=== PATIENT | male | born 1960 | race Caucasian/White ===

== ENCOUNTER 2017-05-26 15:56 | Emergency (ER) | payer BC ==
[2017-05-26 16:03] VITALS: BP 147/87; PULSE 63; RESP 16; TEMP 97.9; O2SAT 96
--- NOTE | 2017-05-26 16:03 | EDPHY ---
H & P Stated Complaint: ? SPIDER BITE TO R FOOT Time Seen by Provider: 05/26/17 16:03 - Personal History Current Tetanus/Diphtheria Vaccine: Yes - Medical/Surgical History Hx Asthma: No Hx Chronic Respiratory Disease: No Hx Diabetes: No Hx Cardiac Disease: No Hx Renal Disease: No Hx Cirrhosis: No Hx Alcoholism: No Hx HIV/AIDS: No Hx Splenectomy or Spleen Trauma: No Other PMH: DENIES - Social History Smoking Status: Never smoked Constitutional: Initial Vital Signs Temperature (C) 36.6 C 05/26/17 15:59 Heart Rate 63 05/26/17 15:59 Respiratory Rate 16 05/26/17 15:59 Blood Pressure 147/87 H 05/26/17 15:59 O2 Sat (%) 96 05/26/17 15:59 O2 Delivery Mode Room Air Allergies/Adverse Reactions: No Known Allergies Allergy (Unverified 05/26/17 15:59) Home Medications: Medication Instructions Recorded oxyCODONE IR [Oxycodone Ir (*)] 5 - 10 mg PO Q6 PRN #7 tab 05/26/17 Medical Decision Making ED Course/Re-evaluation: CHIEF COMPLAINT: Spider bite on right foot HISTORY OF PRESENT ILLNESS: The patient is a 56 y/o male who complains of acute onset of redness and regional pain on his right foot. This afternoon he stuck his foot in his work-shoes and felt something little moved followed by pain on the dorsal and medial aspects of his right foot. The pain was initially mild but rapidly became too severe to walk. Denies muscle pain, spasm, fever, paresthesia, weakness. He denies pertinent medical history. REVIEW OF SYSTEMS: A 10 point review of systems was performed and is negative with the exception of the elements mentioned in the history of present illness. PHYSICAL EXAM: HR, BP, O2 Sat, RR. Temp noted General Appearance: Alert, well hydrated, appropriate, and non-toxic appearing. Head: Atraumatic without scalp tenderness or obvious injury Eyes: Pupils equal, round, reactive to light and accommodation, EOMI, no trauma , no injection. Nose: Atraumatic, no rhinorrhea, clear. Throat: There is no erythema or exudates, no lesions, normal tonsils, mucus membranes moist. Neck: Supple, nontender, no lymphadenopathy. Respiratory: No distress. Cardiovascular: Good capillary refill all extremities. Musculoskeletal: Tenderness and redness on dorsal and medial aspects of right foot. Normal active ROM of all extremities, atraumatic. Neurological: Alert, appropriate, and interactive. Non-focal neuro. Skin: No rashes, good turgor, no nodules on palpation. Past medical history: Denies Social history: Arrives with at bedside, lives in [place], works for [employer]. DIFFERENTIAL DIAGNOSIS: The differential diagnosis for the patient's pain included but was not limited to spider bite, insect sting, contusion, muscle sprain, viral syndrome, and sepsis. MEDICAL DECISION MAKING: The patient is a 56 y/o male who presents with regional pain in his right foot after putting on his shoes that were in the garage. I suspect this to be a black spider bite. I see no evidence of necrosis or systemic illness. Plan for pain management, and was given a prescription for OxyIR if needed. Return precautions provided, patient is comfortable with this plan. Departure - Departure Disposition: Home, Routine, Self-Care Clinical Impression: Spider bite Qualifiers: Encounter type: initial encounter Injury intent: accidental or unintentional Qualified Code(s): T63.301A - Toxic effect of unspecified spider venom, accidental (unintentional), initial encounter Condition: Good Instructions: Insect Bite or Sting (ED), Black Spider Bite (ED) Additional Instructions: 1. Take 600mg of Ibuprofen every 6-8 hours for pain. 2. Take OxyIR as prescribed for severe pain. 3. Follow up with your primary care provider for unimproved symptoms. 4. Return to the ED if you experience severe pain, numbness, weakness, fever, red streaking or black tissue near the bite, or other worsening symptoms. Referrals: Cassia Shepard MD [Medical Doctor] - As per Instructions Prescriptions: oxyCODONE IR [Oxycodone Ir (*)] 5 - 10 mg PO Q6 PRN #7 tab PRN Reason: Pain, Severe Report Scribed for: Lai Raygoza Report Scribed by: Gisela Ortega Date of Report: 05/26/17 Time of Report: 16:05
== END 2017-05-26 16:40 | disposition home or self-care (01) ==
DX: T63.301A Toxic effect of unspecified spider venom, accidental (unintentional), initial encounter (principal)

== ENCOUNTER → 2018-10-24 | Outpatient (CLI) | payer BC | LOC: FIMAGING 09:29 | PROVIDERS: ATTEND Internal Medicine | DX: I72.3 Aneurysm of iliac artery (principal) ==